=== PATIENT | female | born 1970 | race African-American/Black ===

== ENCOUNTER 2018-03-28 17:04 | Emergency (ER) | payer OTHER ==
[~2018-03-28] VITALS: Ht 165.1 cm; Wt 145.2 kg
[~2018-03-28 17:04] MED LIST: ASPIRIN81 M2 PO; FLEXERIL PO; GLUCOPHAGE1000 MG PO; GLYBURIDE 3 MG M3 M1; HYDROCHLOROTHIA25 M1 PO; IBUPROFEN 600600 M1 PO; LOTENSIN20 MG PO; MULTIVITAMINS PO; NORCO 5-325 TA1 EACH PO; PRILOSEC 20 MG20 MG PO; VITAMIN D1000 UNI1 PO; VITAMIN E400 UNIT PO
[2018-03-28 17:20] LABS: URINE BILIRUBIN NEGATIVE (Negative); URINE BLOOD NEGATIVE (Negative); URINE CLARITY CLEAR; URINE COLOR YELLOW; URINE GLUCOSE-RANDOM* 3+ (Negative); URINE KETONES NEGATIVE (Negative); URINE NITRITE-REFLEX NEGATIVE (Negative); URINE PROTEIN (DIPSTICK) NEGATIVE (Negative); URINE SPECIFIC GRAVITY 1.015 (1.005-1.035); URINE UROBILINOGEN 0.2 E.U./dl (0.2-1.0)
[2018-03-28 17:24] LABS: URINE LEUKOCYTES-REFLEX TRACE (Negative)
[2018-03-28] MEDS ORDERED: FLAGYL500 MG PO (18:33)
[2018-03-28 18:48] VITALS: BP 136/62
[2018-03-29 11:33] LABS: HSV PCR SOURCE BLISTER
== END 2018-03-28 18:50 | disposition home or self-care (01) ==
LOC: ER 17:04
PROVIDERS: Physician Assistant
DX: N76.0 Acute vaginitis (principal); B96.89 Other specified bacterial agents as the cause of diseases classified elsewhere; I10 Essential (primary) hypertension; E11.9 Type 2 diabetes mellitus without complications

== ENCOUNTER 2020-05-22 11:28 | Emergency (ER) | payer OTHER ==
[~2020-05-22] VITALS: Ht 165.1 cm; Wt 127.0 kg
[~2020-05-22 11:28] MED LIST changes: +FLAGYL500 MG PO
[2020-05-22 12:38] LABS: ABSOLUTE NEUTROPHILS 3.6 thou/uL (1.4-8.2); BASOPHILS 0.1 % (0.0-2.0); EOSINOPHILS 1.1 % (0.0-3.0); HEMATOCRIT 34.7 % (37.0-47.0); HEMOGLOBIN 10.9 gm/dL (12.0-15.0); LYMPHOCYTES 21.3 % (24.0-44.0); MCH 22.8 pg (26.0-34.0); MCHC 31.4 g/dL (28.0-37.0); MCV 72.5 fL (80.0-100.0); MONOCYTES 8.6 % (1.0-8.0); PLATELET COUNT 260 thou/uL (150-400); POLYS 68.9 % (36.0-66.0); RBC 4.78 mil/uL (4.20-5.00); RDW 15.5 % (10.5-14.5); WBC 5.3 thou/uL (4.0-11.0)
[2020-05-22 12:43] LABS: ANION GAP 5 mmol/L (7-16); BUN 12 mg/dL (7-18); CALCIUM 9.4 mg/dL (8.5-10.1); CHLORIDE 102 mmol/L (98-107); CO2 27 mmol/L (21-32); CREATININE 0.8 mg/dL (0.6-1.0); GLUCOSE 197 mg/dL (74-106); POTASSIUM 3.9 mmol/L (3.5-5.1); SODIUM 134 mmol/L (136-145)
[2020-05-22 12:49] LABS: ALBUMIN 3.4 g/dL (3.4-5.0); DIRECT BILIRUBIN < 0.1 mg/dL (<0.1-0.2); LIPASE 81 U/L (73-393); SGOT 14 U/L (15-37); SGPT 21 U/L (14-59); TOTAL BILIRUBIN 0.4 mg/dL (0.2-1.0); TOTAL PROTEIN 7.8 g/dL (6.4-8.2)
[2020-05-22] MEDS ORDERED: ZOFRAN ODT4 MG PO (13:44)
[2020-05-22 14:26] LABS: URINE BILIRUBIN NEGATIVE (Negative); URINE BLOOD NEGATIVE (Negative); URINE CLARITY SL CLOUDY; URINE COLOR YELLOW; URINE GLUCOSE-RANDOM* NEGATIVE (Negative); URINE KETONES NEGATIVE (Negative); URINE NITRITE-REFLEX NEGATIVE (Negative); URINE PROTEIN (DIPSTICK) TRACE (Negative); URINE SPECIFIC GRAVITY >= 1.030 (1.005-1.035); URINE UROBILINOGEN 0.2 E.U./dl (0.2-1.0)
[2020-05-22 14:27] LABS: URINE LEUKOCYTES-REFLEX 1+ (Negative)
[2020-05-22 14:33] LABS: CASTS None Seen /LPF (None Seen); CRYSTALS None Seen /LPF (None Seen); SQUAMOUS 4-10 Moderate /LPF (0-3)
[2020-05-22 14:34] LABS: URINE RBC None Seen /HPF (0-2); URINE WBC-REFLEX 0-5 Rare /HPF (0-5)
[2020-05-22 14:36] LABS: ANISOCYTOSIS 1+; POLYCHROMASIA OCCASIONAL
[2020-05-22 16:23] VITALS: BP 174/93
== END 2020-05-22 17:05 | disposition home or self-care (01) ==
LOC: ER 11:28
PROVIDERS: Emergency Medicine
DX: K52.9 Noninfective gastroenteritis and colitis, unspecified (principal); I10 Essential (primary) hypertension; E11.9 Type 2 diabetes mellitus without complications; Z79.899 Other long term (current) drug therapy; Z20.828 Contact with and (suspected) exposure to other viral communicable diseases

== ENCOUNTER 2021-01-16 10:32 | Emergency (ER) | payer OTHER ==
[~2021-01-16] VITALS: Ht 162.6 cm; Wt 131.5 kg
[~2021-01-16 10:32] MED LIST changes: +ZOFRAN ODT4 MG PO
[2021-01-16 11:17] LABS: HEMATOCRIT 36.8 % (37.0-47.0); HEMOGLOBIN 11.4 gm/dL (12.0-15.0); MCH 22.2 pg (26.0-34.0); MCHC 30.9 g/dL (28.0-37.0); MCV 71.9 fL (80.0-100.0); RBC 5.11 mil/uL (4.20-5.00); WBC 5.7 thou/uL (4.0-11.0)
[2021-01-16 11:27] LABS: CALCIUM 9.1 mg/dL (8.5-10.1); CREATININE 1.2 mg/dL (0.6-1.0); POTASSIUM 4.7 mmol/L (3.5-5.1)
[2021-01-16 11:37] LABS: ALBUMIN 3.4 g/dL (3.4-5.0); TOTAL BILIRUBIN 0.2 mg/dL (0.2-1.0)
[2021-01-16 12:23] VITALS: BP 152/86
--- NOTE | 2021-01-17 07:25 | EKG ---
[facility] [place] [address] ELECTROCARDIOGRAM REPORT Name: ERIK PENN FRANKIE [facility]na[facility] [id number] Admission: 01/16/21 Attend Phys: Discharge: 01/16/21 Date of : 74 Report #: [id number] [facility] ED Test Date: 2021-01-16 Test Time: 10:49:48 Pat Name: ERIK PENN Department: Room: Gender: F [employer]als[employer]: STEPHANIE MAYERS : 1970 Requested By: Deepika Kwon Order Number: [id number] MD: Hair Kim Measurements Intervals [place] Rate: 76 P: 52 TN: 212 QRS: -27 QRSD: 89 T: 1 QT: 384 QTc: 432 Interpretive Statements Sinus rhythm Prolonged TN interval Probable left atrial enlargement Borderline left axis deviation Anterior infarct, old Compared to ECG 07/31/2012 22:50:03 First degree AV block now present Myocardial infarct finding now present Electronically Signed On 01-17-2021 7:25:39 CDT by Hair Kim [email or web address] <ELECTRONICALLY SIGNED> By: Hair Kim MD, [facility] 01/17/21 0725 1049 [id number] Hair Kim MD, [facility] /EPI
== END 2021-01-16 12:27 | disposition home or self-care (01) ==
LOC: ER 10:32
PROVIDERS: Nurse Practitioner Family
DX: I10 Essential (primary) hypertension (principal); R51.9 Headache, unspecified